=== PATIENT | female | born 1975 | race Caucasian/White ===

== ENCOUNTER 2022-05-18 23:05 | Emergency (ER) | payer SELFPAY ==
[~2022-05-18] VITALS: Ht 177.8 cm; Wt 105.0 kg
[2022-05-19] MEDS ORDERED: SODIUM CHLORIDE 0.9% 1,000 ML IV ONE
[2022-05-19 00:15] VITALS: BP 127/95
[2022-05-19] MEDS ORDERED: ACETAMINOPHEN 325MG TABLET PO NR (00:15)
[2022-05-19 00:19] LABS: BASOPHILS % 0.8 % (0.0-2.0); EOSINOPHILS % 1.1 % (0.0-5.0); HEMATOCRIT. 32.9 % (36.0-48.0); HEMOGLOBIN. 11.1 g/dL (12.0-16.0); LYMPHOCYTES % 25.9 % (20.0-50.0); MEAN CORPUSCULAR HEMOGLOBIN 29.9 pg (28.0-32.0); MEAN CORPUSCULAR VOLUME 88.4 fL (81.0-99.0); MEAN PLATELET VOLUME 7.5 fl (7.4-10.4); MONOCYTES % 4.6 % (2.0-8.0); NEUTROPHILS % 67.6 % (40.0-76.0); PLATELET 304 x1000/uL (130-400); RED BLOOD CELL COUNT 3.72 mill/uL (4.2-5.4); RED CELL DISTRIBUTION WIDTH 14.1 % (11.6-14.6)
[2022-05-19 00:26] LABS: CHLORIDE 107 mEq/L (98-107)
[2022-05-19] MEDS ORDERED: NAPR-677 MT (03:57)
== END 2022-05-19 04:41 | disposition home or self-care (01) ==
LOC: ER 23:05
DX: R07.89 Other chest pain (principal)
CPT/HCPCS: 36415; 71045; 80053; 84484; 85025; 93005; 96360; 96361; 99285; J7030